=== PATIENT | female | born 1975 | race Two or more races ===

== ENCOUNTER 2025-06-24 09:10 | Emergency (ER) | payer OTHER ==
[~2025-06-24] VITALS: Ht 152.4 cm; Wt 86.2 kg
[2025-06-24 09:14] VITALS: BP 134/79
[2025-06-24 09:43] VITALS: BP 134/79; TEMP 97.7; O2SAT 99
== END 2025-06-24 09:44 | disposition home or self-care (01) ==
LOC: ER 09:10
DX: S09.8XXA Other specified injuries of head, initial encounter (principal); Y04.0XXA Assault by unarmed brawl or fight, initial encounter; Y93.89 Activity, other specified; Y92.89 Other specified places as the place of occurrence of the external cause; Y99.0 Civilian activity done for income or pay
CPT/HCPCS: A4606; A4663